=== PATIENT | male | born 1965 | race Caucasian/White ===

== ENCOUNTER 2022-07-03 09:24 | Emergency (ER) | payer SELFPAY ==
--- NOTE | 2022-07-03 10:43 | RAD REPORT ---
EXAM DESCRIPTION: CT - Head Brain Wo Cont - 07/03/2022 10:22 am CLINICAL HISTORY: Migraine COMPARISON: Chest Single View dated 07/03/2022 TECHNIQUE: All CT scans are performed using dose optimization technique as appropriate and may inclu de automated exposure control or mA/KV adjustment according to patient size. FINDINGS: Posterior cranial fossa mass measuring 4.7 cm. Left temporal lobe mass measuring approxima tely 2.5 cm. Vasogenic edema is present in the left temporal lobe. No hydrocephalus. In the posterior cranial fossa, the fourth ventricle is E faced and there is mass effect on the brainstem. No definit e hemorrhage is seen. The paranasal sinuses and mastoids are clear. The calvarium is intact. IMPRESSION: At least 2 masses are identified in the brain, one in the left temporal lobe in the othe r in the posterior cranial fossa that almost certainly represent metastatic disease given the finding s on the same-day chest radiograph. Crowding is noted in the posterior cranial fossa. No supratentori al midline shift or hydrocephalus is noted. Discussed with Dr. Canada by Dr. Jackson at 1035 on 07/03/22
--- NOTE | 2022-07-03 10:48 | RAD REPORT ---
EXAM DESCRIPTION: RAD - Chest Single View - 07/03/2022 10:41 am CLINICAL HISTORY: COUGH COMPARISON: No comparisons FINDINGS: Lines: None. Lungs: Innumerable pulmonary nodules and right upper lobe masslike opacity. Pleural: No significant pleural effusions or pneumothorax. Cardiac: The heart size is within normal limits. Bones: No acute fractures. Other: IMPRESSION: Innumerable pulmonary nodules concerning for metastatic disease. A right upper lobe lung mass is also noted which could be the primary.
[2022-07-03 11:09] LABS: Absolute Lymphocytes (CBC) 0.8 K/uL (0.7-4.9); Hematocrit 24.4 % (39.6-49.0); Lymphocytes % 7.8 % (15.3-44.8); MCV 74.5 fL (80-100); MPV 6.2 fL (7.6-11.3); RBC Red Blood Cell Count 3.28 M/uL (4.33-5.43)
[2022-07-03 11:11] LABS: Protime INR 1.16
[2022-07-03 11:26] LABS: Albumin 2.4 g/dL (3.4-5.0); Bilirubin Total 0.2 mg/dL (0.2-1.0); Potassium 4.5 mmol/L (3.5-5.1)
--- NOTE | 2022-07-03 11:53 | EDPHYS ---
Physician Documentation [facility] Name: Jesus Yousif Age: 57 yrs Sex: Male : 1965 Arrival Date: 07/03/2022 Time: 09:30 Bed 9 Private MD: ED Physician Fox Canada HPI: 07/03 11:25 This 57 yrs old Male presents to ER via Ambulatory with complaints of Cough, jl9 Headache, Fatigue. 11:25 Onset: The symptoms/episode began/occurred 3 week(s) ago. Severity of symptoms: in the jl9 emergency department the symptoms a " 3" out of "10". Modifying factors: The symptoms are alleviated by nothing, the symptoms are aggravated by nothing. Historical: - Allergies: 10:04 No Known Allergies; ss - Home Meds: 10:04 None [Active]; ss - PMHx: 10:04 None; ss - PSHx: 10:04 None; ss - Immunization history:: Client reports having NOT received the Covid vaccine. - Social history:: Smoking status: Patient reports the use of cigarette tobacco products, smokes one-half pack cigarettes per day. ROS: 11:25 Constitutional: Negative for fever, chills, and weight loss, Eyes: Negative for injury, jl9 pain, redness, and discharge, ENT: Negative for injury, pain, and discharge, Neck: Negative for injury, pain, and swelling, Cardiovascular: Negative for chest pain, palpitations, and edema. 11:25 Abdomen/GI: Negative for abdominal pain, nausea, vomiting, diarrhea, and constipation, Back: Negative for injury and pain, : Negative for injury, bleeding, discharge, and swelling, MS/Extremity: Negative for injury and deformity, Skin: Negative for injury, rash, and discoloration. 11:25 Psych: Negative for depression, anxiety, suicide ideation, homicidal ideation, and hallucinations, Allergy/Immunology: Negative for hives, rash, and allergies, Endocrine: Negative for neck swelling, polydipsia, polyuria, polyphagia, and marked weight changes, Hematologic/Lymphatic: Negative for swollen nodes, abnormal bleeding, and unusual bruising. 11:25 Respiratory: Positive for cough, "sounds productive". 11:25 Neuro: Positive for weakness. 11:25 Neuro: Positive for headache. Exam: 11:26 Constitutional: This is a well developed, well nourished patient who is awake, alert, jl9 and in no acute distress. Head/Face: Normocephalic, atraumatic. Eyes: Pupils equal round and reactive to light, extra-ocular motions intact. Lids and lashes normal. Conjunctiva and sclera are non-icteric and not injected. Cornea within normal limits. Periorbital areas with no swelling, redness, or edema. ENT: Mucous membranes moist. Neck: Trachea midline, no thyromegaly or masses palpated, and no cervical lymphadenopathy. Supple, full range of motion without nuchal rigidity, or vertebral point tenderness. No Meningismus. Chest/axilla: Normal chest wall appearance and motion. Nontender with no deformity. No lesions are appreciated. Cardiovascular: Regular rate and rhythm with a normal S1 and S2. No gallops, murmurs, or rubs. Normal PMI, no JVD. No pulse deficits. Respiratory: Lungs have equal breath sounds bilaterally, clear to auscultation and percussion. No rales, rhonchi or wheezes noted. No increased work of breathing, no retractions or nasal flaring. Abdomen/GI: Soft, non-tender, with normal bowel sounds. No distension or tympany. No guarding or rebound. No evidence of tenderness throughout. Back: No spinal tenderness. No costovertebral tenderness. Full range of motion. Skin: Warm, dry with normal turgor. Normal color with no rashes, no lesions, and no evidence of cellulitis. MS/ Extremity: Pulses equal, no cyanosis. Neurovascular intact. Full, normal range of motion. Neuro: Awake and alert, GCS 15, oriented to person, place, time, and situation. Cranial nerves II-XII grossly intact. Motor strength 5/5 in all extremities. Sensory grossly intact. Cerebellar exam normal. Normal gait. Psych: Awake, alert, with orientation to person, place and time. Behavior, mood, and affect are within normal limits. Vital Signs: 10:00 BP 132 / 97; Pulse 97; Resp 19; Temp 98.2(TE); Pulse Ox 97% on R/A; Weight 65.77 kg; ss Height 5 ft. 8 in. (172.72 cm); Pain 3/10; 10:00 Body Mass Index 22.05 (65.77 kg, 172.72 cm) ss MDM: 10:11 Patient medically screened. jl9 11:26 Data reviewed: vital signs, nurses notes, radiologic studies. 07/03 10:16 Order name: SARS-COV-2 RT PCR (Document "Date of Onset" if Symptomatic); Complete Time: jl9 12:33 07/03 10:42 Order name: CMP; Complete Time: 11:32 jl07/03 10:12 Order name: XRAY Chest (1 view); Complete Time: 10:50 07/03 10:42 Order name: CBC with Diff; Complete Time: 11:19 07/03 10:42 Order name: PT-INR; Complete Time: 11:19 07/03 10:42 Order name: Ptt, Activated; Complete Time: 11:19 07/03 10:12 Order name: CT Head Brain wo Cont; Complete Time: 10:50 07/03 13:04 Order name: Chest Abdomen Pelvis W Cont; Complete Time: 13:38 EDCT 07/03 10:43 Order name: IV Saline Lock; Complete Time: 10:57 jl9 Administered Medications: 13:15 Drug: Ondansetron 4 mg Route: IVP; Site: right antecubital; ss 13:18 Drug: morphine 2 mg Route: IVP; Infused Over: 4 mins; Site: right antecubital; ss 13:21 Drug: Ketorolac 30 mg Route: IVP; Site: right antecubital; ss Disposition: 16:31 Co-signature as Attending Physician, Fox Canada MD. rn Disposition Summary: 07/03/22 11:52 Transfer Ordered Transfer Location: [facility] jl9 Reason: Higher level of care jl9 Condition: Stable jl9 Problem: new jl9 Symptoms: are unchanged jl9 Accepting Physician: In progress(07/03/22 14:40) ss Diagnosis - Abnormal brain scan jl9 Forms: - Medication Reconciliation Form jl9 - SBAR form jl9 Signatures: Dispatcher [employer] Fox Balderrama MD MD rn Smirch, Shelby, RN RN Jamal Howard jl9 Corrections: (The following items were deleted from the chart) 13:04 12:49 Thorax W/ Con+CT.RAD.BRZ ordered. EDCT EDMS 13:06 12:49 Abdomen Pelvis W Con+CT.RAD.BRZ ordered. EDMS EDMS 14:40 11:52 In progress jl9 ss
--- NOTE | 2022-07-03 11:53 | ER ---
Nurse's Notes [facility] Name: Jesus Yousif Age: 57 yrs Sex: Male : 1965 Arrival Date: 07/03/2022 Time: 09:30 Bed 9 Private MD: Diagnosis: Abnormal brain scan Presentation: 07/03 10:00 Chief complaint: Patient states: "extreme migraine headaches and I think I may have had ss COVID. I was traveling for about 3 weeks. I've had a cough that comes and goes and fatigue. I quit smoking, but thought that was causing my headaches, so I started smoking again." Denies fever. Coronavirus screen: Client denies travel out of the [place] in the last 14 days. Ebola Screen: Patient denies exposure to infectious person. Patient denies travel to an Ebola-affected area in the 21 days before illness onset. Initial Sepsis Screen: Does the patient meet any 2 criteria? No. Patient's initial sepsis screen is negative. Does the patient have a suspected source of infection? No. Patient's initial sepsis screen is negative. Risk Assessment: Do you want to hurt yourself or someone else? Patient reports no desire to harm self or others. Onset of symptoms was June 12, 2022. 10:00 Method Of Arrival: Ambulatory ss 10:00 Acuity: EFRAIN 3 ss Historical: - Allergies: 10:04 No Known Allergies; ss - Home Meds: 10:04 None [Active]; ss - PMHx: 10:04 None; ss - PSHx: 10:04 None; ss - Immunization history:: Client reports having NOT received the Covid vaccine. - Social history:: Smoking status: Patient reports the use of cigarette tobacco products, smokes one-half pack cigarettes per day. Screenin:24 Abuse screen: Denies threats or abuse. Denies injuries from another. Nutritional ss screening: No deficits noted. Tuberculosis screening: Never had TB. Fall Risk None identified. Assessment: 12:24 Reassessment: Patient appears in no apparent distress at this time. Pt ambulated with ss steady gait to restroom. Pt is aware of pending transfer. 14:10 Reassessment: Awaiting for EMS to arrive to transport patient to [facility]. ss 14:40 Reassessment: Patient appears in no apparent distress at this time. Patient and/or ss family updated on plan of care and expected duration. Pain level reassessed. Patient is alert, oriented x 3, equal unlabored respirations, skin warm/dry/pink. Vital Signs: 10:00 BP 132 / 97; Pulse 97; Resp 19; Temp 98.2(TE); Pulse Ox 97% on R/A; Weight 65.77 kg; ss Height 5 ft. 8 in. (172.72 cm); Pain 3/10; 10:00 Body Mass Index 22.05 (65.77 kg, 172.72 cm) ED Course: 09:30 Patient arrived in ED. mr 10:04 Triage completed. ss 10:04 Arm band placed on right wrist. ss 10:05 Jamal Wagner is PHCP. jl9 10:05 Fox Canada MD is Attending Physician. jl9 10:22 CT Head Brain wo Cont In Process Unspecified. EDMS 10:43 XRAY Chest (1 view) In Process Unspecified. EDMS 10:56 Inserted saline lock: 20 gauge in right antecubital area, using aseptic technique. kc6 Blood collected. 10:57 Ptt, Activated Sent. kc6 10:57 PT-INR Sent. kc6 10:57 CBC with Diff Sent. kc6 10:57 CMP Sent. kc6 10:57 SARS-COV-2 RT PCR (Document "Date of Onset" if Symptomatic) Sent. kc6 11:14 Karly Long, RN is Primary Nurse. ss 12:10 initiated transfer to [facility]. bd 12:24 Patient has correct armband on for positive identification. Bed in low position. ss 13:08 Chest Abdomen Pelvis W Cont In Process Unspecified. EDMS 14:40 No provider procedures requiring assistance completed. Patient transferred, IV remains ss in place. Administered Medications: 13:15 Drug: Ondansetron 4 mg Route: IVP; Site: right antecubital; ss 13:18 Drug: morphine 2 mg Route: IVP; Infused Over: 4 mins; Site: right antecubital; ss 13:21 Drug: Ketorolac 30 mg Route: IVP; Site: right antecubital; ss Medication: 12:24 VIS not applicable for this client. ss Outcome: 11:52 ER care complete, transfer ordered by . jl9 14:40 Transferred by ground EMS to [facility]. 14:40 Condition: good 14:40 Instructed on the need for transfer. 14:40 Patient left the ED. ss Signatures: Dispatcher [employer] EDMS Joyce Rockwell Mary mr Smirch, Shelby, RN RN Jamal Howard9 Madison English kc6
[2022-07-03] MEDS ORDERED: KETOROLAC 30 MG/ML INJ ONE (13:22)
[2022-07-03] MEDS ORDERED: MORPHINE 2 MG/ML SYR ONE (13:22)
[2022-07-03] MEDS ORDERED: ONDANSETRON 4 MG/2 ML VIAL ONE (13:22)
--- NOTE | 2022-07-03 13:34 | RAD REPORT ---
EXAM DESCRIPTION: CT - Chest Abdomen Pelvis W Cont - 07/03/2022 1:06 pm CLINICAL HISTORY: Chest mass. Chest and abdominal pain COMPARISON: Chest x-ray July 03, 2022 TECHNIQUE: Computed axial tomography of the chest, abdomen and pelvis was obtained. 100 cc Isovue-30 0 was administered intravenously. Oral contrast was not requested. This limits evaluation of bowel. All CT scans are performed using dose optimization technique as appropriate and may include automated exposure control or mA/KV adjustment according to patient size. FINDINGS: 15 centimeter right upper lobe opacity with occlusion of the right upper lobe bronchus. Th e mass extends into the mediastinum and right hilum. There is additional mediastinal left hilar lymphadenopathy. Innumerable bilateral pulmonary nodules which vary in size from a millimeters to 3.9 centimeters. No pleural effusion. Minimal pericardial effusion. The liver contains many hypodense lesions. The largest measures 7 centimeters. The spleen, pancreas and right adrenal gland unremarkable 3.1 centimeter left adrenal mass. Small low-density area left kidney extending to the periphery. Several small low-density renal lesions Additional 2.3 low to intermediate density lesion right kidne y. Large amount stool within the colon IMPRESSION: 15 centimeter right upper lobe opacity representing a combination of atelectasis and edson g mass. It is difficult to determine the exact size of lung mass. Mediastinal and hilar lymphadenopathy. Pulmonary, hepatic and left adrenal lesions compatible with metastatic disease Several renal lesions may represent inflammation or metastases
[2022-07-03 15:02] VITALS: BP 132/97; TEMP 98.2; O2SAT 97
== END 2022-07-03 14:40 | disposition short-term general hospital (02) ==
LOC: EDBD 09:24 → ER 09:24
DX: R94.02 Abnormal brain scan (principal); R05.9 Cough, unspecified; F17.210 Nicotine dependence, cigarettes, uncomplicated; Z20.822 Contact with and (suspected) exposure to COVID-19
CPT/HCPCS: 36415; 70450; 71045; 71260; 74177; 80053; 85025; 85610; 85730; 96374; 96375; 99285; J2270; J2405; Q9967; U0003